=== PATIENT | female | born 1935 | race Hispanic/Latino ===

== ENCOUNTER → 2019-02-28 | Outpatient (CLI) | payer OTHER | END | disposition home or self-care (01) | LOC: RAH 10:41 | PROVIDERS: ATTEND Internal Medicine | DX: Z13.6 Encounter for screening for cardiovascular disorders (principal) | CPT/HCPCS: 75571 ==

== ENCOUNTER → 2022-08-12 | Outpatient (CLI) | payer OTHER | END | disposition home or self-care (01) | LOC: RAH 13:57 | PROVIDERS: ATTEND Internal Medicine | DX: I44.7 Left bundle-branch block, unspecified (principal); R94.31 Abnormal electrocardiogram [ECG] [EKG]; R01.1 Cardiac murmur, unspecified; I35.1 Nonrheumatic aortic (valve) insufficiency | CPT/HCPCS: 93306 ==

== ENCOUNTER 2022-09-13 06:16 | Emergency (ER) | payer OTHER ==
[~2022-09-13] VITALS: Ht 152.4 cm; Wt 49.9 kg
[2022-09-13 06:47] LABS: BASOPHILS % (AUTO) 0.6 % (0.0-5.0); EOSINOPHILS % (AUTO) 2.8 % (0.0-8.0); HEMATOCRIT 41.6 % (36-48); LYMPHOCYTES % (AUTO) 25.4 % (21.0-51.0); MEAN CORPUSCULAR HEMOGLOBIN 30.7 pg (27.0-33.0); MEAN CORPUSCULAR HGB CONC 35.1 g/dL (32.0-36.0); MEAN CORPUSCULAR VOLUME 87.6 fL (79-99); MONOCYTES % (AUTO) 6.5 % (3.0-13.0); NEUTROPHILS % (AUTO) 63.8 % (40.0-77.0); PLATELET COUNT (AUTO) 258 K/uL (130-400); RED BLOOD CELL COUNT(AUTO) 4.75 MIL/uL (4.00-5.50); WHITE BLOOD COUNT (AUTO) 5.4 K/uL (4.8-10.8)
[2022-09-13 07:05] LABS: ALBUMIN 3.8 g/dL (3.5-5.0); CREATININE 0.8 mg/dL (0.5-1.5); POTASSIUM 3.4 mmol/L (3.5-5.1); TOTAL PROTEIN, SERUM 7.5 g/dL (6.0-8.3)
[2022-09-13] MEDS ORDERED: MORPHINE 4 MG SYG IVP ONE (07:30)
[2022-09-13] MEDS ORDERED: ONDANSETRON 4MG INJ IVP ONE (07:30)
[2022-09-13 07:34] LABS: APPEARANCE,URINE CLEAR (CLEAR); BILIRUBIN,URINE NEGATIVE (NEGATIVE); COLOR,URINE COLORLESS (YELLOW); GLUCOSE, URINE (UA) NEGATIVE (NEGATIVE); KETONES,URINE NEGATIVE (NEGATIVE); LEUKOCYTE ESTERASE ,URINE NEGATIVE Leu/uL (NEGATIVE); NITRATE,URINE NEGATIVE (NEGATIVE); OCCULT BLOOD,URINE NEGATIVE (NEGATIVE); PROTEIN,URINE 10 mg/dL (NEGATIVE); UROBILINOGEN,URINE 0.2 mg/dL (0.2-1.0)
[2022-09-13 07:52] LABS: SQUAMOUS EPITHELIAL CELL,UR RARE /HPF (0-2); WBC,URINE 0-1 /HPF (0-1)
[2022-09-13 08:34] VITALS: BP 140/64
[2022-09-13] MEDS ORDERED: CYCL-309 PO (08:50)
[2022-09-13] MEDS ORDERED: IBUP-1493 PO (08:50)
[2022-09-13] MEDS ORDERED: IBUPROFEN 600 MG TABLET PO STA (09:05)
== END 2022-09-13 09:21 | disposition home or self-care (01) ==
LOC: EDH 06:16
DX: M25.551 Pain in right hip (principal); E78.00 Pure hypercholesterolemia, unspecified; I10 Essential (primary) hypertension; Z90.710 Acquired absence of both cervix and uterus; Z79.899 Other long term (current) drug therapy; W06.XXXA Fall from bed, initial encounter; Y93.89 Activity, other specified; Y92.89 Other specified places as the place of occurrence of the external cause; Y99.8 Other external cause status
CPT/HCPCS: 99285; 70450; 96374; 71045; 96375; 84484; 80053; 85025; 81001; 36415; 72125; 72131; 74176; 93005; J2405; J2270

== ENCOUNTER 2022-09-21 04:09 | Emergency (ER) | payer OTHER ==
[~2022-09-21] VITALS: Ht 154.9 cm; Wt 49.9 kg
[~2022-09-21 04:09] MED LIST: CYCL-309 PO; IBUP-1493 PO
[2022-09-21 04:27] LABS: BASOPHILS % (AUTO) 0.9 % (0.0-5.0); EOSINOPHILS % (AUTO) 5.1 % (0.0-8.0); HEMATOCRIT 36.5 % (36-48); LYMPHOCYTES % (AUTO) 32.3 % (21.0-51.0); MEAN CORPUSCULAR HEMOGLOBIN 30.7 pg (27.0-33.0); MONOCYTES % (AUTO) 13.7 % (3.0-13.0); NEUTROPHILS % (AUTO) 47.8 % (40.0-77.0); PLATELET COUNT (AUTO) 280 K/uL (130-400); RED CELL DISTRIBUTION WIDTH 11.9 % (11.0-15.5); WHITE BLOOD COUNT (AUTO) 4.3 K/uL (4.8-10.8)
[2022-09-21] MEDS ORDERED: 0.9%NACL 1000ML 1,000 ML IV SCH (04:30)
[2022-09-21 04:40] VITALS: BP 102/70
[2022-09-21 04:41] LABS: ALBUMIN 3.4 g/dL (3.5-5.0); CREATININE 0.8 mg/dL (0.5-1.5); POTASSIUM 3.5 mmol/L (3.5-5.1); TOTAL PROTEIN, SERUM 6.6 g/dL (6.0-8.3)
[2022-09-21 05:01] LABS: APPEARANCE,URINE CLEAR (CLEAR); BILIRUBIN,URINE NEGATIVE (NEGATIVE); COLOR,URINE COLORLESS (YELLOW); GLUCOSE, URINE (UA) NEGATIVE (NEGATIVE); KETONES,URINE NEGATIVE (NEGATIVE); LEUKOCYTE ESTERASE ,URINE NEGATIVE Leu/uL (NEGATIVE); NITRATE,URINE NEGATIVE (NEGATIVE); OCCULT BLOOD,URINE NEGATIVE (NEGATIVE); PH,URINE 7.5 (5.0-8.0); PROTEIN,URINE NEGATIVE (NEGATIVE); UROBILINOGEN,URINE 0.2 mg/dL (0.2-1.0)
[2022-09-21] MEDS ORDERED: ONDANSETRON ODT 4MG TAB SL ONE (05:30)
[2022-09-21] MEDS ORDERED: MORPHINE 4 MG SYG IVP ONE (05:30)
[2022-09-21] MEDS ORDERED: DOCU-116 PO (05:39)
[2022-09-21] MEDS ORDERED: TRAM50TA4 PO (05:39)
== END 2022-09-21 05:53 | disposition home or self-care (01) ==
LOC: EDH 04:09
DX: R55 Syncope and collapse (principal); M54.50 Low back pain, unspecified; K59.00 Constipation, unspecified; E78.00 Pure hypercholesterolemia, unspecified; I10 Essential (primary) hypertension; Z90.710 Acquired absence of both cervix and uterus; Z79.1 Long term (current) use of non-steroidal anti-inflammatories (NSAID); Z79.899 Other long term (current) drug therapy
CPT/HCPCS: 99285; 96374; 71045; 84484; 80053; 85025; 81003; 36415; 74018; 93005; J2270